=== PATIENT | female | born 2000 | race Hispanic/Latino ===

== ENCOUNTER 2019-12-06 23:48 | Emergency (ER) | payer MEDICAID ==
[~2019-12-06] VITALS: Ht 154.9 cm; Wt 61.2 kg
[2019-12-07] MEDS ORDERED: LO LOESTRIN FE1 EACH PO
== END 2019-12-07 00:57 | disposition home or self-care (01) ==
LOC: ED 23:48
DX: S71.111A Laceration without foreign body, right thigh, initial encounter (principal); J45.909 Unspecified asthma, uncomplicated; F17.200 Nicotine dependence, unspecified, uncomplicated; Z88.0 Allergy status to penicillin; Z79.899 Other long term (current) drug therapy; W18.02XA Striking against glass with subsequent fall, initial encounter
CPT/HCPCS: 12002; 99283-25

== ENCOUNTER 2024-01-12 00:07 | Inpatient (IN) | payer OTHER ==
[~2024-01-12 00:07] MED LIST: CALCIUM CARBONATE 500 MG CHEW PO PRN; CEFAZOLIN SODIUM 2 GM/20 ML SYR IV SCH; LACTATED RINGER'S 1,000 ML IV SCH; LO LOESTRIN FE1 EACH PO; MAGNESIUM HYDROXIDE/AL HYDROX 30 ML CUP PO PRN; miSOPROStoL 25 MCG TAB PV SCH
[2024-01-12] MEDS ORDERED: OXYTOCIN/DEXTROSE 5% 20 UNITS/100 ML BAG IV SCH (00:15)
[2024-01-12 00:47] LABS: AMPHETAMINES, URINE NEGATIVE (NEGATIVE); BARBITURATES, URINE NEGATIVE (NEGATIVE); BENZODIAZEPINE, URINE NEGATIVE (NEGATIVE); BUPRENORPHINE, URINE NEGATIVE (NEGATIVE); CANNABINOID, URINE NEGATIVE (NEGATIVE); COCAINE, URINE NEGATIVE (NEGATIVE); ECSTASY, URINE NEGATIVE (NEGATIVE); FENTANYL, URINE NEGATIVE (NEGATIVE); METHADONE, URINE NEGATIVE (NEGATIVE); OPIATES, URINE NEGATIVE (NEGATIVE); OXYCODONE, URINE NEGATIVE (NEGATIVE); PHENCYCLIDINE, URINE NEGATIVE (NEGATIVE)
[2024-01-12 00:49] LABS: HEMATOCRIT 29.4 % (35.0-50.0); HEMOGLOBIN 10.3 g/dL (12.0-18.0); MCH 30.3 (27-36); MCHC 35.1 g/dl (30-36); MCV 86.5 fl (81-99); RBC 3.4 M/ul (4.3-5.7); RDW 14.1 (10.5-15.0)
[2024-01-12 01:23] LABS: ABO O; ANTIBODY SCREEN NEGATIVE; RH POSITIVE
[2024-01-12] MEDS ORDERED: ROPIVACAINE 0.2% 200 ML BAG ONE (08:10)
[2024-01-12] MEDS ORDERED: ePHEDrine sulfate 5 MG/ML SYRINGE IV PRN (08:45)
[2024-01-12] MEDS ORDERED: LACTATED RINGER'S 500 ML IV PRN (08:45)
[2024-01-12] MEDS ORDERED: ROPIVACAINE 0.2% 200 ML BAG EPIDURAL SCH (08:45)
[2024-01-12] MEDS ORDERED: LACTATED RINGER'S 2,000 ML IV ONE (08:45)
[2024-01-12] MEDS ORDERED: BENZOCAINE 60 ML AEROSOL TOP PRN (13:00)
[2024-01-12] MEDS ORDERED: HYDROCORTISONE ACETATE 25 MG SUPP PR PRN (13:00)
[2024-01-12] MEDS ORDERED: HYDROCODONE/ACETA 5/325 TAB PO PRN (13:00)
[2024-01-12] MEDS ORDERED: MAGNESIUM HYDROXIDE/AL HYDROX 30 ML CUP PO PRN (13:00)
[2024-01-12] MEDS ORDERED: IBUPROFEN 600 MG TAB PO PRN (13:00)
[2024-01-12] MEDS ORDERED: ACETAMINOPHEN 325 MG TAB PO PRN (13:00)
[2024-01-12] MEDS ORDERED: CALCIUM CARBONATE 500 MG CHEW PO PRN (13:00)
[2024-01-12] MEDS ORDERED: LIDOCAINE 2% VISCOUS 6 ML SYR TOP ONE ×2 (13:00)
[2024-01-12] MEDS ORDERED: MAGNESIUM HYDROXIDE 30 ML UDC PO PRN (13:00)
[2024-01-12] MEDS ORDERED: WITCH HAZEL/GLYCERIN 1 EA PAD TOP PRN (13:00)
[2024-01-12] MEDS ORDERED: OXYTOCIN/0.9 % SODIUM CHLORIDE 500 ML IV SCH (13:00)
[2024-01-12] MEDS ORDERED: SENNOSIDES/DOCUSATE 1 EA TAB PO SCH (21:00)
[2024-01-13 05:14] LABS: HEMATOCRIT 29.6 % (35.0-50.0); MCH 29.8 (27-36); MCHC 33.7 g/dl (30-36); MCV 88.3 fl (81-99); RBC 3.35 M/ul (4.3-5.7); RDW 14.2 (10.5-15.0)
== END 2024-01-13 15:46 | disposition home or self-care (01) | DRG 807 ==
LOC: FBC 00:07
PROVIDERS: ADMIT Obstetrics & Gynecology; ATTEND Obstetrics & Gynecology
PROC: 10E0XZZ Delivery of Products of Conception, External Approach (ICD-10-PCS; principal; 2024-01-12)
PROC: 0KQM0ZZ Repair Perineum Muscle, Open Approach (ICD-10-PCS; 2024-01-12)
PROC: 3E0R3BZ Introduction of Anesthetic Agent into Spinal Canal, Percutaneous Approach (ICD-10-PCS; 2024-01-12)
PROC: 00HU33Z Insertion of Infusion Device into Spinal Canal, Percutaneous Approach (ICD-10-PCS; 2024-01-12)
PROC: 3E0DXGC Introduction of Other Therapeutic Substance into Mouth and Pharynx, External Approach (ICD-10-PCS; 2024-01-12)
PROC: 3E033VJ Introduction of Other Hormone into Peripheral Vein, Percutaneous Approach (ICD-10-PCS; 2024-01-12)
PROC: 10907ZC Drainage of Amniotic Fluid, Therapeutic from Products of Conception, Via Natural or Artificial Opening (ICD-10-PCS; 2024-01-12)
DX: O48.0 Post-term pregnancy (principal); Z37.0 Single live birth; O77.0 Labor and delivery complicated by meconium in amniotic fluid; O70.1 Second degree perineal laceration during delivery; Z3A.40 40 weeks gestation of pregnancy; O99.344 Other mental disorders complicating childbirth; F41.8 Other specified anxiety disorders; Z87.891 Personal history of nicotine dependence
CPT/HCPCS: 01960; 36415; 80307; 82803; 85027; 86850; 86900; 86901; A9270; J0690; J2590; J7121